=== PATIENT | female | born 1985 | race Caucasian/White ===

== ENCOUNTER 2018-01-17 23:28 | Emergency (ER) | payer SELFPAY ==
[2018-01-17 23:37] VITALS: BP 125/74; PULSE 68; TEMP 98; BMI 27.4
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
[2018-01-18] MEDS ORDERED: KETOROLAC TROMETHAMINE 60 MG/2 ML VIAL IM ONE (00:28)
[2018-01-18] MEDS ORDERED: METHOCARBAMOL 500 MG TABLET PO ONE (00:28)
[2018-01-18] MEDS ORDERED: METHOCARBAMOL 500 MG TABLET ONE (00:34)
[2018-01-18] MEDS ORDERED: KETOROLAC TROMETHAMINE 60 MG/2 ML VIAL ONE (00:35)
[2018-01-18 00:54] LABS: HCG,QUALITATIVE URINE NEGATIVE
[2018-01-18 00:58] LABS: URINE APPEARANCE SLCLOUDY; URINE BILIRUBIN NEGATIVE (<2.0 mg/dL); URINE COLOR YELLOW; URINE GLUCOSE (UA) NEGATIVE (NEGATIVE); URINE KETONE NEGATIVE (NEGATIVE); URINE LEUK ESTERASE TRACE (NEGATIVE); URINE NITRITE NEGATIVE (NEGATIVE); URINE PROTEIN NEGATIVE (NEGATIVE)
[2018-01-18 01:12] LABS: EPI CELLS MODERATE /HPF (FEW); URINE BACTERIA RARE /hpf (NONE SEEN); URINE MUCUS RARE
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
== END 2018-01-18 02:50 | disposition home or self-care (01) ==
LOC: JER 23:28
PROC: 3E0233Z Introduction of Anti-inflammatory into Muscle, Percutaneous Approach (ICD-10-PCS; principal; 2018-01-17)
DX: M25.511 Pain in right shoulder (principal); S13.4XXA Sprain of ligaments of cervical spine, initial encounter; S16.1XXA Strain of muscle, fascia and tendon at neck level, initial encounter; V43.52XA Car driver injured in collision with other type car in traffic accident, initial encounter; Y93.89 Activity, other specified; Y92.410 Unspecified street and highway as the place of occurrence of the external cause
CPT/HCPCS: 70450-TC; 71046-TC-FY; 72125-TC; 73030-TC-RT-FY; 73090-TC-RT-FY; 81003; 81015; 84703; 99282-25

== ENCOUNTER 2018-01-18 21:09 | Emergency (ER) | payer SELFPAY ==
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
[2018-01-18 21:25] VITALS: BP 127/91; PULSE 72; TEMP 98.1; BMI 27.4
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
[2018-01-18] MEDS ORDERED: predniSONE 20 MG TABLET (UD) PO ONE (22:34)
[2018-01-18] MEDS ORDERED: ALBUTEROL SO4 2.5/IPRATROPIUM 0.5 INH SOL 3 ML VIAL.NEB. NEB ONE ×2 (22:35→22:36)
[2018-01-18] MEDS ORDERED: predniSONE 20 MG TABLET (UD) ONE (22:36)
== END 2018-01-18 23:03 | disposition home or self-care (01) ==
LOC: JERFT 21:09 → JER 21:09 → JERFT 23:03
DX: J18.9 Pneumonia, unspecified organism (principal); M79.1 Myalgia; V59.4 Driver of pick-up truck or van injured in collision with other and unspecified motor vehicles in traffic accident
CPT/HCPCS: 99281-25; J7620

== ENCOUNTER 2018-01-22 17:27 | Emergency (ER) | payer OTHER ==
[2018-01-22 17:34] VITALS: BP 127/71; PULSE 78; TEMP 98.4; BMI 27.4
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
[2018-01-22] MEDS ORDERED: CLINDAMYCIN HCL 300 MG CAPSULE PO ONE (18:10)
[2018-01-22] MEDS ORDERED: DEXAMETHASONE SOD PHOSPHATE 10 MG/1 ML VIAL IM ONE (18:10)
[2018-01-22] MEDS ORDERED: DEXAMETHASONE SOD PHOSPHATE 10 MG/1 ML VIAL ONE (18:12)
[2018-01-22] MEDS ORDERED: CLINDAMYCIN HCL 150 MG CAPSULE (FP) ONE (18:15)
== END 2018-01-22 18:23 | disposition home or self-care (01) ==
LOC: JERFT 17:27
DX: J02.0 Streptococcal pharyngitis (principal); B95.5 Unspecified streptococcus as the cause of diseases classified elsewhere
CPT/HCPCS: 87070; 87077; 87430; 99281-25; J1100

== ENCOUNTER 2018-12-15 02:40 | Emergency (ER) | payer SELFPAY ==
[2018-12-15] MEDS ORDERED: ACETAMINOPHEN INJECTION 100 ML IVPB ONE (02:47)
[2018-12-15] MEDS ORDERED: morphine SULFATE 4 MG/ML VIAL ONE (02:54)
[2018-12-15 02:57] VITALS: TEMP 98.6; BMI 26.6
[2018-12-15] MEDS ORDERED: TAMSULOSIN HCL 0.4 MG CAP PO ONE (03:02)
[2018-12-15 03:06] VITALS: BP 110/69
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
[2018-12-15 03:18] LABS: BASO % 0.6 % (0-2.0); EOS % 0.5 % (0-4.5); HEMATOCRIT 38.8 % (32.4-45.2); LYMPH % 33.5 % (8-40); MCH 32.3 pg (25.7-33.7); MCHC 33.4 g/dl (32.0-36.0); MEAN CELL VOLUME 96.5 fl (80-96); MEAN PLT VOLUME 11.2 fl (7.5-11.1); MONO % 6.2 % (3.8-10.2); NEUT % 59.2 % (42.8-82.8); PLATELET COUNT 197 K/MM3 (134-434); RBC 4.02 M/mm3 (3.60-5.2); RDW 13.2 % (11.6-15.6); WHITE BLOOD COUNT 8.6 K/mm3 (4.0-10.0)
[2018-12-15 03:22] VITALS: PULSE 93
[2018-12-15] MEDS ORDERED: morphine CARPU-JECT 4 MG/1 ML DISP.SYRIN IVPUSH ONE (03:23)
[2018-12-15 03:39] LABS: ALBUMIN 3.6 g/dl (3.4-5.0); ALK PHOS 72 U/L (45-117); ANION GAP 6 MMOL/L (8-16); BILIRUBIN,TOTAL 0.3 mg/dL (0.2-1); BLOOD UREA NITROGEN 9 mg/dL (7-18); CALCIUM 8.3 mg/dL (8.5-10.1); CHLORIDE 111 mmol/L (98-107); CO2 24 mmol/L (21-32); CREATININE 0.5 mg/dL (0.55-1.3); GLUCOSE,RANDOM 108 mg/dL (74-106); POTASSIUM 3.5 mmol/L (3.5-5.1); SGOT/AST 12 U/L (15-37); SGPT/ALT 19 U/L (13-61); SODIUM 140 mmol/L (136-145); TOT PROT 6.9 g/dl (6.4-8.2)
[2018-12-15] MEDS ORDERED: KETOROLAC TROMETHAMINE 30 MG/1 ML VIAL IVPUSH ONE (04:41)
[2018-12-15] MEDS ORDERED: KETOROLAC TROMETHAMINE 30 MG/1 ML VIAL ONE (04:46)
== END 2018-12-15 05:00 | disposition home or self-care (01) ==
LOC: JER 02:40
DX: S09.93XA Unspecified injury of face, initial encounter (principal); Y04.2XXA Assault by strike against or bumped into by another person, initial encounter; Y92.89 Other specified places as the place of occurrence of the external cause; Y99.8 Other external cause status; Y07.9 Unspecified perpetrator of maltreatment and neglect
CPT/HCPCS: 36415; 70486-TC; 72125-TC; 80053; 80307; 84703; 85025; 99282-25

== ENCOUNTER 2019-03-30 10:43 | Emergency (ER) | payer SELFPAY ==
[2019-03-30 10:47] VITALS: BMI 25.0
[2019-03-30] MEDS ORDERED: METOCLOPRAMIDE HCL INJECTION 10 MG/2 ML VIAL IVPUSH ONE (11:57)
[2019-03-30] MEDS ORDERED: FAMOTIDINE 20 MG/50 ML IVPB 20 MG/50 ML MG IVPB ONE ×2 (11:57→12:06)
[2019-03-30] MEDS ORDERED: SODIUM CHLORIDE 1,000 ML IV STA (11:57)
[2019-03-30] MEDS ORDERED: AZITHROMYCIN 500 MG TABLET PO ONE (11:58)
--- NOTE | 2019-03-30 12:05 | PDOC ---
History of Present Illness - General Chief Complaint: Vomiting/Diarrhea Stated Complaint: VOMITING/DIARRHEA Time Seen by Provider: 03/30/19 11:20 History Source: Patient Exam Limitations: No Limitations - History of Present Illness Initial Comments: 03/30/19 11:59 33 yo F w/ no sig PMhx comes in c/o 3 days of diffuse abdominal cramping/ discomfort with multiple episodes of NB diarrhea (15 episodes a day) w/ NBNB vomiting since yesterday, 5 episodes, (+)tactile fever. Also c/o a progressively increasing diffuse pounding headache which feels like migraines which she has had in the past, associated with photophobia and phonophobia. No dizziness, no neck pain/stiffness, no weakness, no numbness/tingling anywhrere. Also c/o 2 days of foul smelling white-grayish vaginal discharge, which is different than her BV from the past. (+)h/o chlamydia, (+)sexually active with one partner, does not use protection all the times, says that they broke up for 3 months and just got back together, she would like to get tested and treated for STDs. No known sick contacts, no recent travel. (+)recent abx use 1 mo ago for toothache, but feels different than a yeast infection. 03/30/19 12:04 Past History - Past Medical History Allergies/Adverse Reactions: Allergies Allergy/AdvReac Type Severity Reaction Status Date / Time No Known Allergies Allergy Verified 03/30/19 10:47 Home Medications: Ambulatory Orders Albuterol 2.5/Ipratropium 0.5 [Duoneb -] 1 neb NEB Q4H #20 vial 01/18/18 Azithromycin [Zithromax 250mg Tablets -] 250 mg PO UTDICT #6 tab 01/18/18 Ibuprofen [Motrin -] 600 mg PO TID PRN #15 tablet 01/18/18 Methocarbamol [Robaxin -] 500 mg PO TID PRN #10 tablet 01/18/18 Oxycodone HCl/Acetaminophen [Percocet 5-325 mg Tablet] 1 - 2 tab PO Q6H #20 tablet MDD 4 01/18/18 predniSONE [Deltasone -] 40 mg PO DAILY #8 tablet 01/18/18 Clindamycin [Cleocin -] 300 mg PO TID #21 capsule 01/22/18 Ondansetron [Zofran Odt -] 4 mg SL BID #10 od.tablet 01/22/18 Ibuprofen [Motrin -] 600 mg PO QID #28 tablet 12/15/18 COPD: No - Immunization History Immunization Up to Date: Yes - Suicide/Smoking/Psychosocial Hx Smoking History: Never smoked Have you smoked in the past 12 months: No Hx Alcohol Use: No Drug/Substance Use Hx: No Review of Systems - Review of Systems Able to Perform ROS?: Yes Constitutional: Yes: Fever (tactile), Malaise. No: Chills, Night Sweats HEENTM: No: Eye Pain, Recent change in vision, Throat Pain Respiratory: No: Cough, Shortness of Breath Cardiac (ROS): No: Chest Pain, Palpitations, Chest Tightness ABD/GI: Yes: Diarrhea, Nausea, Poor Appetite, Vomiting, Abdominal cramping : No: Dysuria, Hematuria Integumentary: No: Rash Neurological: Yes: Headache. No: Numbness, Dizziness Psychiatric: Yes: Change in Appetite Endocrine: No: Unexplained Weight Loss *Physical Exam - Vital Signs Last Vital Signs Temp Pulse Resp BP Pulse Ox 97.4 F L 81 18 114/77 99 03/30/19 10:45 03/30/19 10:45 03/30/19 10:45 03/30/19 10:45 03/30/19 10:45 - Physical Exam General Appearance: Yes: Nourished. No: Apparent Distress HEENT: positive: TRINID[place], Normal ENT Inspection, Normal Voice. negative: Pale Conjunctivae, Scleral Icterus (R), Scleral Icterus (L) Neck: positive: Supple. negative: Decreased range of motion, Rigidity, Tender midline Respiratory/Chest: positive: Lungs Clear, Normal Breath Sounds. negative: Respiratory Distress, Accessory Muscle Use Cardiovascular: positive: Regular Rhythm, Regular Rate Comments:: 03/30/19 12:24 A+Ox3 (person, place, time), normal sensorium. Visual steinberg: full to confrontation. Pupils: equal, round, and reactive to light. EOM: intact and smooth pursuit. No nystagmus. Sensation: V1, V2, and V3 normal b/l Facial strength: muscles of mastication, facial expression, shoulder shrug, and head turn normal. Hearing: grossly intact b/l Mouth: tongue protrudes midline and moves Left/Right equal b/l. Uvula rises symmetrically. Motor: UE and LE 5/5 diffusely. Sensation: light touch and pinprick WNL. Cerebellum: Hvamkh-iegl-btjkml normal without dysmetria or intention tremor. Wzmd-qo-jegl wnl. No dysdiadodyskinesia. Gait: unassisted, steady, Romberg negative, and heel-walk normal. No atalgia, difficulty in ambulation or ataxia. Female Pelvic Exam: positive: discharge (mild whitish). negative: CMT, lesions , adnexal tenderness, vaginal bleeding Gastrointestinal/Abdominal: positive: Normal Bowel Sounds, Tender (mild epigastric), Soft. negative: Guarding, Rebound Musculoskeletal: positive: Normal Inspection. negative: CVA Tenderness, Decreased Range of Motion Extremity: positive: Normal Capillary Refill, Normal Inspection, Normal Range of Motion. negative: Tender, Pedal Edema Integumentary: positive: Normal Color, Dry. negative: Jaundice, Rash Neurologic: positive: Fully Oriented, Alert, Normal Mood/Affect ED Treatment Course - LABORATORY CBC & Chemistry Diagram: 03/30/19 13:43 03/30/19 12:45 Medical Decision Making - Medical Decision Making 03/30/19 12:07 33 yo F w/ NVD, headache, likely AGE, dehydration. Also w/ vaginal discharge, would like empiric STD treatment. Will line and lab, check UA, UCG, give reglan, benadryl, pepcid, IV fluids, ceftriaxone and zithromax and will reassess. 03/30/19 16:00 Pt woke up, feels better, migraine is almost gone. She is still a little nauseated. Will try PO challenge. Urine pending Change of shift, care of patient signed over to TELEPHONE LINEMAN [place] who will reassess patient, follow up UA and decide on dispo plan. *DC/Admit/Observation/Transfer Diagnosis at time of Disposition: Abdominal pain Qualifiers: Abdominal location: unspecified location Qualified Code(s): R10.9 - Unspecified abdominal pain - Referrals - Patient Instructions - Post Discharge Activity
[2019-03-30] MEDS ORDERED: METOCLOPRAMIDE HCL INJECTION 10 MG/2 ML VIAL ONE (12:06)
[2019-03-30] MEDS ORDERED: cefTRIAXone SODIUM 1 GM VIAL ONE (12:06)
[2019-03-30] MEDS ORDERED: AZITHROMYCIN 250 MG TABLET ONE (12:06)
[2019-03-30] MEDS ORDERED: LIDOCAINE HCL 1%, 10 MG/ML (20ML VIAL) ONE (12:17)
[2019-03-30] MEDS ORDERED: ONDANSETRON 4 MG/2 ML VIAL IVPUSH ONE (13:26)
[2019-03-30 13:35] LABS: ALK PHOS 72 U/L (45-117); ANION GAP 5 MMOL/L (8-16); BILIRUBIN,TOTAL 0.6 mg/dL (0.2-1); BLOOD UREA NITROGEN 9.6 mg/dL (7-18); CALCIUM 8.7 mg/dL (8.5-10.1); CHLORIDE 105 mmol/L (98-107); CO2 30 mmol/L (21-32); CREATININE 0.7 mg/dL (0.55-1.3); GLUCOSE,RANDOM 83 mg/dL (74-106); LIPASE 222 U/L (73-393); MAGNESIUM 2.1 mg/dL (1.8-2.4); PHOSPHOROUS 4.9 mg/dL (2.5-4.9); POTASSIUM 5.5 mmol/L (3.5-5.1); SGOT/AST 44 U/L (15-37); SGPT/ALT 20 U/L (13-61); SODIUM 140 mmol/L (136-145); TOT PROT 7.7 g/dl (6.4-8.2)
[2019-03-30 13:53] LABS: BASO % 0.8 % (0-2.0); EOS % 0.1 % (0-4.5); HEMOGLOBIN 13.3 GM/dL (10.7-15.3); LYMPH % 19.6 % (8-40); MCH 32.6 pg (25.7-33.7); MCHC 34.2 g/dl (32.0-36.0); MEAN CELL VOLUME 95.4 fl (80-96); MEAN PLT VOLUME 10.6 fl (7.5-11.1); MONO % 7.9 % (3.8-10.2); NEUT % 71.6 % (42.8-82.8); PLATELET COUNT 229 K/MM3 (134-434); RBC 4.09 M/mm3 (3.60-5.2); RDW 13.5 % (11.6-15.6); WHITE BLOOD COUNT 10.8 K/mm3 (4.0-10.0)
[2019-03-30] MEDS ORDERED: ONDANSETRON 4 MG/2 ML VIAL ONE (14:12)
[2019-03-30 16:38] VITALS: BP 109/69; PULSE 60; TEMP 98.3
--- NOTE | 2019-03-30 16:40 | PDOC ---
*Physical Exam - Vital Signs Last Vital Signs Temp Pulse Resp BP Pulse Ox 98.3 F 60 12 109/69 97 03/30/19 16:36 03/30/19 16:36 03/30/19 16:36 03/30/19 16:36 03/30/19 16:36 - Physical Exam General Appearance: Yes: Appropriately Dressed. No: Apparent Distress Cardiovascular: positive: Regular Rhythm, Regular Rate Gastrointestinal/Abdominal: positive: Normal Bowel Sounds, Soft. negative: Tender Integumentary: positive: Normal Color, Dry, Warm Neurologic: positive: Alert ED Treatment Course - LABORATORY CBC & Chemistry Diagram: 03/30/19 13:43 03/30/19 12:45 - ADDITIONAL ORDERS Additional order review: Laboratory Results 03/30/19 12:45 Sodium 140 Potassium 5.5 H Chloride 105 Carbon Dioxide 30 Anion Gap 5 L BUN 9.6 Creatinine 0.7 Est GFR (CKD-EPI)AfAm 133.81 Est GFR (CKD-EPI)NonAf 115.45 Random Glucose 83 Calcium 8.7 Phosphorus 4.9 Magnesium 2.1 Total Bilirubin 0.6 AST 44 H ALT 20 Alkaline Phosphatase 72 Total Protein 7.7 Albumin 4.0 Lipase 222 Beta HCG, Quant < 1.0 03/30/19 03/30/19 13:43 12:45 RBC 4.09 Cancelled MCV 95.4 Cancelled MCHC 34.2 Cancelled RDW 13.5 Cancelled MPV 10.6 Cancelled Neutrophils % 71.6 D Cancelled Lymphocytes % 19.6 D Cancelled Monocytes % 7.9 Cancelled Eosinophils % 0.1 Cancelled Basophils % 0.8 Cancelled - Medications Given in the ED: ED Medications Discontinued Medications Generic Name Dose Route Start Last Admin Trade Name Antolinq PRN Reason Stop Dose Admin Azithromycin 1,000 mg 03/30/19 11:58 03/30/19 12:52 Zithromax PO 03/30/19 11:59 1,000 mg ONCE ONE Administration Ceftriaxone Sodium 250 mg 03/30/19 11:58 03/30/19 12:52 Rocephin - IM 03/30/19 11:59 250 mg ONCE ONE Administration Diphenhydramine HCl 25 mg 03/30/19 11:57 03/30/19 12:51 Benadryl Injection - IVPB 03/30/19 11:58 25 mg ONCE ONE Administration Famotidine/Sodium Chloride 20 mg in 50 mls @ 100 mls/hr 03/30/19 11:57 12:52 Pepcid 20 Mg Premixed Ivpb - IVPB 03/30/19 12:26 100 mls/hr ONCE ONE Administration Sodium Chloride 1,000 mls @ 1,000 mls/hr 03/30/19 11:57 03/30/19 12:51 Normal Saline - IV 03/30/19 12:56 1,000 mls/hr ASDIR STA Administration Metoclopramide HCl 10 mg 03/30/19 11:57 03/30/19 12:52 Reglan Injection - IVPUSH 03/30/19 11:58 10 mg ONCE ONE Administration Ondansetron HCl 4 mg 03/30/19 13:26 03/30/19 14:00 Zofran Injection IVPUSH 03/30/19 13:27 4 mg ONCE ONE Administration Progress Note - Progress Note Progress Note: Received signout from ROBERT Winn. Briefly this a 33-year-old woman without significant history with 3 days of diffuse abdominal pain multiple episodes of nonbloody diarrhea (up to 15 daily) with nonbilious nonbloody food stuff vomiting since yesterday. Patient reports 5 episodes of vomiting. Initially patient with slow onset progressing pounding headache with photophobia and phonophobia. Presentation is consistent with usual migraine pattern. Patient also with complaints of foul smelling white vaginal discharge for 2 days which is different than her past episodes of BV. Patient requested STI testing and treatment. CBC is unremarkable. Chemistries notable for potassium 5.5 Beta hCG is less than 1.0 Patient has received azithromycin 1 g orally, ceftriaxone 250 mg IM, Benadryl 25 mg IV push, famotidine 20 mg IV, Reglan 10 mg IV push, and Zofran 4 mg IV push. Presently patient is pain-free from her headache. Patient has not had diarrhea since arriving in the ER Urinalysis is pending Medical Decision Making - Medical Decision Making 03/30/19 17:50 Urinalysis notable for 1+ protein and 120 casts. No suggestion of infection is present. Patient is tolerating by mouth's without difficulty and is currently requesting discharge. I'll discharge patient home with prescription for Zofran sublingual to be taking as needed and to follow-up with her primary doctor. I discussed the physical exam findings, ancillary test results and final diagnoses with the patient. I answered all of the patient's questions. The patient was satisfied with the care received and felt comfortable with the discharge plan and treatment plan. The patient will call their primary care physician within 24 hours to arrange follow-up and will return to the Emergency Department with any new, persistent or worsening symptoms. *DC/Admit/Observation/Transfer Diagnosis at time of Disposition: Gastroenteritis - Discharge Dispostion Disposition: HOME Condition at time of disposition: Improved Decision to Admit order: No - Prescriptions Prescriptions: Ondansetron [Zofran Odt -] 4 mg SL BID #10 od.tablet - Referrals - Patient Instructions Additional Instructions: Rest, drink lots of fluids: Teas, water, soups Leyla alana, carbonated beverages for the bubbles May try peppermint teas Avoid heavy , spicy or fatty foods until symptoms have resolved Avoid contact with others until fevers and symptoms resolved Lots of handwashing and good hygiene Continue tupy-kil-aksvchr medications for symptomatic relief Tylenol or Motrin for fever and pain May use Zofran-one tablet dissolved on tongue as needed for nauseousness. May repeat times one every 8 hours You been treated today with azithromycin 1 g by mouth for treatment of presumed chlamydia You have been treated with Rocephin 250 mg injection for treatment of presumned gonorrhea The gonorrhea and chlamydia testing will not be completed for the next few days. You may call and leave message for return phone call with lab results. Be sure to be clear with your name, birthdate, and phone number Always use condoms with the partners Followup with private physician in one to 2 days as needed Return to emergency department for worsened symptoms, fevers, dehydration - Post Discharge Activity
[2019-03-30 17:09] LABS: HCG,QUALITATIVE URINE Negative
[2019-03-30 17:42] LABS: EPI CELLS 28.9 /HPF (0-5/HPF); HYALINE CASTS 120 /lpf (0-8); PH,URINE 7.5 (5.0-8.0); URINE APPEARANCE CLEAR; URINE BACTERIA 7.8 /hpf (NEGATIVE); URINE BILIRUBIN NEGATIVE (NEGATIVE); URINE COLOR YELLOW; URINE GLUCOSE (UA) NEGATIVE (NEGATIVE); URINE KETONE NEGATIVE (NEGATIVE); URINE LEUK ESTERASE NEGATIVE (NEGATIVE); URINE NITRITE NEGATIVE (NEGATIVE); URINE PROTEIN 1+ (NEGATIVE); URINE RBC 8 /hpf (0-4); URINE UROBILINOGEN 0.2 mg/dL (0.2-1.0); URINE WBC 1 /hpf (0-5)
== END 2019-03-30 18:25 | disposition home or self-care (01) ==
LOC: JER 10:43
PROC: 3E03329 Introduction of Other Anti-infective into Peripheral Vein, Percutaneous Approach (ICD-10-PCS; principal; 2019-03-30)
PROC: 3E033GC Introduction of Other Therapeutic Substance into Peripheral Vein, Percutaneous Approach (ICD-10-PCS; 2019-03-30)
PROC: 3E033GC Introduction of Other Therapeutic Substance into Peripheral Vein, Percutaneous Approach (ICD-10-PCS; 2019-03-30)
PROC: 3E033GC Introduction of Other Therapeutic Substance into Peripheral Vein, Percutaneous Approach (ICD-10-PCS; 2019-03-30)
PROC: 3E033GC Introduction of Other Therapeutic Substance into Peripheral Vein, Percutaneous Approach (ICD-10-PCS; 2019-03-30)
DX: K52.9 Noninfective gastroenteritis and colitis, unspecified (principal); N89.8 Other specified noninflammatory disorders of vagina; G43.909 Migraine, unspecified, not intractable, without status migrainosus
CPT/HCPCS: 36415; 80053; 81003; 83690; 83735; 84100; 84702; 84703; 85025; 87077; 87086; 87491; 87591; 99282-25; J7030

== ENCOUNTER 2020-11-15 01:01 | Emergency (ER) | payer OTHER ==
[2020-11-15 01:23] VITALS: BMI 25.6
[2020-11-15] MEDS ORDERED: diphenhydrAMINE HCL 50 MG CAPSULE PO ONE (02:06)
[2020-11-15] MEDS ORDERED: SODIUM CHLORIDE 0.9% 500 ML INFUS.BAG IV ONE (02:12)
[2020-11-15] MEDS ORDERED: diphenhydrAMINE HCL 25 MG CAPSULE (FP) PO ONE (02:17)
[2020-11-15] MEDS ORDERED: ACETAMINOPHEN 325 MG TABLET (FP) PO ONE (03:57)
[2020-11-15 04:02] LABS: URINE APPEARANCE CLEAR; URINE BILIRUBIN NEGATIVE (NEGATIVE); URINE COLOR YELLOW; URINE GLUCOSE (UA) NEGATIVE (NEGATIVE); URINE KETONE TRACE (NEGATIVE); URINE LEUK ESTERASE NEGATIVE (NEGATIVE); URINE NITRITE NEGATIVE (NEGATIVE); URINE PROTEIN NEGATIVE (NEGATIVE); URINE UROBILINOGEN 0.2 mg/dL (0.2-1.0)
[2020-11-15] MEDS ORDERED: ACETAMINOPHEN 325 MG TABLET (FP) ONE (04:37)
[2020-11-15 06:50] VITALS: BP 104/81; PULSE 77; TEMP 97.6
== END 2020-11-15 06:53 | disposition home or self-care (01) ==
LOC: JER 01:01
DX: R50.9 Fever, unspecified (principal); S99.912A Unspecified injury of left ankle, initial encounter
CPT/HCPCS: 36415; 73610-TC-LT-FY; 73630-TC-LT; 81003; 84703; 87491; 87591; 99284-25; C9803; U0003

== ENCOUNTER 2021-04-13 04:02 | Emergency (ER) | payer OTHER ==
[2021-04-13 04:54] VITALS: BMI 25.6
[2021-04-13 06:45] LABS: BASO % 0.7 % (0-2.0); EOS % 0.3 % (0-4.5); HEMATOCRIT 38.4 % (32.4-45.2); HEMOGLOBIN 13.3 GM/dL (10.7-15.3); LYMPH % 21.4 % (8-40); MCH 33.1 pg (25.7-33.7); MCHC 34.7 g/dl (32.0-36.0); MEAN CELL VOLUME 95.3 fl (80-96); MEAN PLT VOLUME 9.8 fl (7.5-11.1); MONO % 5.3 % (3.8-10.2); NEUT % 72.3 % (42.8-82.8); PLATELET COUNT 248 10^3/uL (134-434); RBC 4.03 M/mm3 (3.60-5.2); WHITE BLOOD COUNT 9.7 K/mm3 (4.0-10.0)
[2021-04-13 07:05] LABS: ALBUMIN 3.7 g/dl (3.4-5.0); BLOOD UREA NITROGEN 6.9 mg/dL (7-18); CALCIUM 8.8 mg/dL (8.5-10.1)
[2021-04-13 07:09] LABS: CREATININE 0.6 mg/dL (0.55-1.3)
[2021-04-13 07:10] LABS: BILIRUBIN,TOTAL 0.2 mg/dL (0.2-1); TOT PROT 7.6 g/dl (6.4-8.2)
[2021-04-13 10:41] VITALS: BP 110/70; PULSE 68; TEMP 97.9
== END 2021-04-13 10:41 | disposition home or self-care (01) ==
LOC: JER 04:02
DX: R51.9 Headache, unspecified (principal); M54.2 Cervicalgia; V49.50XA Passenger injured in collision with unspecified motor vehicles in traffic accident, initial encounter
CPT/HCPCS: 36415; 70450-TC; 71260-TC; 72125-TC; 72128-TC; 72131-TC; 73562-TC-RT-FY; 74177-TC; 80053; 84703; 85025; 99285-25; Q9967

== ENCOUNTER 2021-11-12 22:58 | Emergency (ER) | payer OTHER ==
[2021-11-12 23:03] VITALS: BP 107/71; PULSE 90; TEMP 97; BMI 29.2
[2021-11-12] MEDS ORDERED: LORazepam 2 MG TABLET PO ONE (23:39)
[2021-11-12] MEDS ORDERED: LORazepam 1 MG TABLET ONE (23:45)
[2021-11-13 00:34] LABS: BASO % 0.8 % (0-2.0); HEMATOCRIT 39.9 % (32.4-45.2); HEMOGLOBIN 13.5 GM/dL (10.7-15.3); LYMPH % 39.3 % (8-40); MCH 31.8 pg (25.7-33.7); MCHC 33.8 g/dl (32.0-36.0); MEAN PLT VOLUME 8.8 fl (7.5-11.1); MONO % 7.7 % (3.8-10.2); NEUT % 51.2 % (42.8-82.8); PLATELET COUNT 287 10^3/uL (134-434); RBC 4.25 M/mm3 (3.60-5.2); RDW 12.8 % (11.6-15.6)
[2021-11-13 00:55] LABS: CHLORIDE 107 mmol/L (98-107); SODIUM 141 mmol/L (136-145)
[2021-11-13 00:56] LABS: ALBUMIN 3.6 g/dl (3.4-5.0); ANION GAP 5 MMOL/L (8-16); BLOOD UREA NITROGEN 8.2 mg/dL (7-18); CALCIUM 8.8 mg/dL (8.5-10.1); CO2 28 mmol/L (21-32); GLUCOSE,RANDOM 75 mg/dL (74-106)
[2021-11-13 01:00] LABS: SGOT/AST 21 U/L (15-37); SGPT/ALT 28 U/L (13-61)
[2021-11-13 01:02] LABS: ALK PHOS 106 U/L (45-117); BILIRUBIN,TOTAL 0.2 mg/dL (0.2-1); CREATININE 0.7 mg/dL (0.55-1.3); TOT PROT 7.6 g/dl (6.4-8.2)
[2021-11-13 01:10] LABS: GAMMA GLUTAMYL TRANSPEPTIDASE 23 U/L (5-85)
[2021-11-14 10:02] LABS: SYPHILIS W/ RPR CONF NON-REACTIVE (NONREACTIVE)
[2021-11-14 10:26] LABS: HIV INTERPRETATION NEGATIVE (NEGATIVE)
== END 2021-11-13 01:51 | disposition home or self-care (01) ==
LOC: JER 22:58
DX: Z11.4 Encounter for screening for human immunodeficiency virus [HIV] (principal)
CPT/HCPCS: 36415; 80053; 82977; 84702; 85025; 86704; 86780; 86803; 87340; 87389; 87491; 87517; 87591; 99283-25

== ENCOUNTER 2021-11-27 10:40 | Inpatient (IN) | payer OTHER ==
[2021-11-27] MEDS ORDERED: BISMUTH SUBSALICYLATE 524 MG/30 ML PO PRN (13:29)
[2021-11-27] MEDS ORDERED: DICYCLOMINE HCL 10 MG CAPSULE PO PRN (13:29)
[2021-11-27] MEDS ORDERED: MAGNESIUM CITRATE 300 ML BOTTLE PO PRN (13:29)
[2021-11-27] MEDS ORDERED: LOPERAMIDE HCL 2 MG CAPSULE PO PRN (13:29)
[2021-11-27] MEDS ORDERED: MENTHOL/PHENOL 1 EACH UD MM PRN (13:29)
[2021-11-27] MEDS ORDERED: MAGNESIUM HYDROX 2400MG/30ML ORAL SUSPENSION 30 ML CUP PO PRN (13:29)
[2021-11-27] MEDS ORDERED: ACETAMINOPHEN 325 MG TABLET (FP) PO PRN (13:29)
[2021-11-27] MEDS ORDERED: MAG HYDROX/AL HYDROX/SIMETH 30 ML UNIT-DOSE CUP PO PRN (13:29)
[2021-11-27] MEDS ORDERED: ONDANSETRON *ODT* 4 MG TABLET SL PRN (13:29)
[2021-11-27] MEDS ORDERED: P-EPHED 60MG/TRIPROLIDI 2.5MG TABLET PO PRN (13:29)
[2021-11-27 13:43] VITALS: BMI 34.4
[2021-11-27] MEDS: NICOTINE 14 MG/24 HOURS TOPICAL PATCH TD SCH (15:06)
[2021-11-27] MEDS: IBUPROFEN 400 MG TABLET (FP) PO PRN (15:10)
[2021-11-27] MEDS: hydrOXYzine PAMOATE 25 MG CAPSULE (FP) PO PRN ×2 (15:11→19:17)
[2021-11-27] MEDS: METHOCARBAMOL 500 MG TABLET PO PRN ×2 (15:11→22:57)
[2021-11-27] MEDS: NICOTINE 10 MG CARTRIDGE (INHALER) IH PRN (19:18)
[2021-11-27] MEDS ORDERED: methaDONE HCL 10 MG TABLET (FOR DETOX USE ONLY) PO ONE (20:28)
[2021-11-27] MEDS ORDERED: cloNIDine HCL 0.1 MG TABLET PO PRN (20:28)
[2021-11-27] MEDS: DOXYCYCLINE HYCLATE 100 MG TABLET PO SCH (22:57)
[2021-11-27] MEDS: THIAMINE HCL 100 MG TABLET (FP) PO SCH (22:57)
[2021-11-28] MEDS: diazePAM 5 MG TABLET PO PRN ×4 (02:09→22:53)
[2021-11-28] MEDS: IBUPROFEN 400 MG TABLET (FP) PO PRN ×4 (02:14→22:54)
[2021-11-28] MEDS: PRENATAL VITAMINS W/ FOLIC ACID TABLET (FP) PO SCH (10:02)
[2021-11-28] MEDS: METHOCARBAMOL 500 MG TABLET PO PRN ×2 (10:03→17:50)
[2021-11-28] MEDS: DOXYCYCLINE HYCLATE 100 MG TABLET PO SCH ×2 (10:03→22:18)
[2021-11-28] MEDS: hydrOXYzine PAMOATE 25 MG CAPSULE (FP) PO PRN ×2 (10:03→22:53)
[2021-11-28] MEDS: NICOTINE 14 MG/24 HOURS TOPICAL PATCH TD SCH (10:04)
[2021-11-28] MEDS: NICOTINE 10 MG CARTRIDGE (INHALER) IH PRN ×2 (17:53→22:58)
[2021-11-28] MEDS: MELATONIN 5 MG TABLETS PO PRN (22:18)
[2021-11-28] MEDS: THIAMINE HCL 100 MG TABLET (FP) PO SCH (22:18)
[2021-11-29] MEDS: METHOCARBAMOL 500 MG TABLET PO PRN ×4 (02:47→22:06)
[2021-11-29] MEDS: hydrOXYzine PAMOATE 25 MG CAPSULE (FP) PO PRN ×5 (05:50→22:06)
[2021-11-29] MEDS: ACETAMINOPHEN 325 MG TABLET (FP) PO PRN ×2 (05:50→16:04)
[2021-11-29] MEDS: diazePAM 5 MG TABLET PO PRN ×2 (08:41→12:25)
[2021-11-29] MEDS ORDERED: methaDONE HCL 10 MG TABLET (FOR DETOX USE ONLY) PO ONE (10:00)
[2021-11-29] MEDS: PRENATAL VITAMINS W/ FOLIC ACID TABLET (FP) PO SCH (10:04)
[2021-11-29] MEDS: DOXYCYCLINE HYCLATE 100 MG TABLET PO SCH ×2 (10:04→22:06)
[2021-11-29] MEDS: NICOTINE 14 MG/24 HOURS TOPICAL PATCH TD SCH (10:06)
[2021-11-29] MEDS: NICOTINE 10 MG CARTRIDGE (INHALER) IH PRN (10:06)
[2021-11-29] MEDS: IBUPROFEN 400 MG TABLET (FP) PO PRN ×2 (12:25→17:56)
[2021-11-29 15:56] LABS: HIV INTERPRETATION NEGATIVE (NEGATIVE)
[2021-11-29] MEDS: MELATONIN 5 MG TABLETS PO PRN (22:05)
[2021-11-29] MEDS: THIAMINE HCL 100 MG TABLET (FP) PO SCH (22:06)
[2021-11-30 00:06] LABS: SARS-CoV-2 NAA Not Detected (Not Detected)
[2021-11-30] MEDS: IBUPROFEN 400 MG TABLET (FP) PO PRN ×2 (00:36→08:02)
[2021-11-30] MEDS: diazePAM 5 MG TABLET PO PRN ×2 (00:37→08:01)
[2021-11-30] MEDS: METHOCARBAMOL 500 MG TABLET PO PRN (05:23)
[2021-11-30] MEDS: DOXYCYCLINE HYCLATE 100 MG TABLET PO SCH (09:07)
[2021-11-30] MEDS: NICOTINE 14 MG/24 HOURS TOPICAL PATCH TD SCH (09:07)
[2021-11-30] MEDS: PRENATAL VITAMINS W/ FOLIC ACID TABLET (FP) PO SCH (09:07)
[2021-11-30 09:36] VITALS: BP 139/82; PULSE 57; TEMP 97.4
== END 2021-11-30 09:46 | disposition home or self-care (01) | DRG 773 ==
LOC: YASAS 10:40 → Y6N 14:15
PROVIDERS: ADMIT Allergy & Immunology; ATTEND Allergy & Immunology
PROC: HZ2ZZZZ Detoxification Services for Substance Abuse Treatment (ICD-10-PCS; principal; 2021-11-27)
DX: F11.23 Opioid dependence with withdrawal (principal); F13.10 Sedative, hypnotic or anxiolytic abuse, uncomplicated; F17.213 Nicotine dependence, cigarettes, with withdrawal; F41.9 Anxiety disorder, unspecified; N39.0 Urinary tract infection, site not specified; Z86.19 Personal history of other infectious and parasitic diseases; Z28.310 Unvaccinated for COVID-19
CPT/HCPCS: 36415; 81025; 87389; 87811; 93005; 93010; C9803-CS; U0003; U0005

== ENCOUNTER 2022-05-15 19:22 | Emergency (ER) | payer OTHER ==
[2022-05-15 20:19] VITALS: BP 115/74; PULSE 55; RESP 20; TEMP 98.3; BMI 27.4
[2022-05-15] MEDS ORDERED: METOCLOPRAMIDE HCL INJECTION 10 MG/2 ML VIAL IVPB ONE (22:30)
[2022-05-15] MEDS ORDERED: LACTATED RINGERS SOLUTION 1000 ML INFUS.BAG IV ONE (22:30)
[2022-05-15] MEDS ORDERED: ACETAMINOPHEN 1000 MG/100 ML BAG IVPB ONE (22:30)
[2022-05-15] MEDS ORDERED: METOCLOPRAMIDE HCL INJECTION 10 MG/2 ML VIAL ONE (23:31)
[2022-05-15] MEDS ORDERED: ACETAMINOPHEN INJECTION 100 ML IVPB ONE (23:31)
[2022-05-15 23:56] LABS: BASO % 0.4 % (0-2.0); HEMATOCRIT 42.5 % (32.4-45.2); HEMOGLOBIN 14.5 GM/dL (10.7-15.3); LYMPH % 10.8 % (8-40); MCH 31.9 pg (25.7-33.7); MCHC 34.1 g/dl (32.0-36.0); MEAN CELL VOLUME 93.6 fl (80-96); MEAN PLT VOLUME 9.6 fl (7.5-11.1); MONO % 2.4 % (3.8-10.2); NEUT % 86.4 % (42.8-82.8); PLATELET COUNT 277 10^3/uL (134-434); RBC 4.53 M/mm3 (3.60-5.2); RDW 12.7 % (11.6-15.6); WHITE BLOOD COUNT 10.5 K/mm3 (4.0-10.0)
[2022-05-16] MEDS ORDERED: KETOROLAC TROMETHAMINE 15 MG/ML VIAL IVPUSH ONE (00:16)
[2022-05-16 00:21] LABS: ALBUMIN 3.8 g/dl (3.4-5.0); MAGNESIUM 1.9 mg/dL (1.8-2.4)
[2022-05-16 00:23] LABS: CREATININE 0.6 mg/dL (0.55-1.3)
[2022-05-16 00:24] LABS: PHOSPHOROUS 2.9 mg/dL (2.5-4.9)
[2022-05-16 00:25] LABS: BILIRUBIN,TOTAL 0.3 mg/dL (0.2-1); TOT PROT 7.7 g/dl (6.4-8.2)
[2022-05-16] MEDS ORDERED: KETOROLAC TROMETHAMINE 15 MG/ML VIAL ONE (00:41)
[2022-05-16] MEDS ORDERED: SUMATRIPTAN SUCCINATE 6 MG/0.5 ML VIAL SQ ONE (01:41)
[2022-05-16] MEDS ORDERED: SUMATRIPTAN SUCCINATE 6 MG/0.5 ML VIAL ONE (02:25)
== END 2022-05-16 03:15 | disposition home or self-care (01) ==
LOC: JER 19:22
PROC: 3E0333Z Introduction of Anti-inflammatory into Peripheral Vein, Percutaneous Approach (ICD-10-PCS; principal; 2022-05-15)
PROC: 3E0333Z Introduction of Anti-inflammatory into Peripheral Vein, Percutaneous Approach (ICD-10-PCS; 2022-05-15)
PROC: 3E033GC Introduction of Other Therapeutic Substance into Peripheral Vein, Percutaneous Approach (ICD-10-PCS; 2022-05-15)
DX: R51.9 Headache, unspecified (principal); R11.2 Nausea with vomiting, unspecified
CPT/HCPCS: 0241U-QW; 36415; 80053; 83690; 83735; 84100; 84703; 85025; 93005; 93010; 99284-25